=== PATIENT | male | born 1975 | race Caucasian/White ===

== ENCOUNTER 2018-06-18 11:39 | Emergency (ER) | payer OTHER ==
[2018-06-18 11:39] VITALS: BMI 33.5
[2018-06-18 11:54] VITALS: RESP 18
--- NOTE | 2018-06-18 12:30 | C.PDOC ---
History Of Present Illness 42 y/o male presents to ED with c/o chest pressure pain worse with movement radiating to left arm since this morning. Patient denies sob, nausea, vomiting, numbness to arm, fever, chills or any other complaints at this time. Time Seen by Provider: 06/18/18 11:46 Chief Complaint (Nursing): Chest Pain History Per: Patient History/Exam Limitations: no limitations Onset/Duration Of Symptoms: Days Current Symptoms Are (Timing): Still Present Past Medical History Reviewed: Historical Data, Nursing Documentation, Vital Signs Vital Signs: Last Vital Signs Temp 98.8 F 06/18/18 17:42 Pulse 87 06/18/18 17:42 Resp 18 06/18/18 17:42 BP 130/89 06/18/18 17:42 Pulse Ox 96 06/18/18 17:42 - Medical History PMH: No Chronic Diseases Surgical History: Appendectomy - [facility] Procedures TETANUS TOXOID ADMINIST (08/29/14) Family History: States: No Known Family Hx - Social History Hx Tobacco Use: Yes Hx Alcohol Use: No Hx Substance Use: No - Immunization History Hx Tetanus Toxoid Vaccination: No Hx Influenza Vaccination: No Hx Pneumococcal Vaccination: No Review Of Systems Except As Marked, All Systems Reviewed And Found Negative. Cardiovascular: Positive for: Chest Pain Musculoskeletal: Positive for: Arm Pain Physical Exam - Physical Exam Appears: Non-toxic, No Acute Distress Skin: Warm, Dry, No Rash Head: Atraumatic, Normacephalic Eye(s): bilateral: Normal Inspection Oral Mucosa: Moist Neck: Normal ROM, Supple Chest: Symmetrical, Tenderness (left side chest wall tenderness ) Cardiovascular: Rhythm Regular Respiratory: Normal Breath Sounds, No Rales, No Rhonchi, No Wheezing Gastrointestinal/Abdominal: Soft, No Tenderness, No Guarding, No Rebound Extremity: Normal ROM, No Pedal Edema, Capillary Refill (<2 seconds) Neurological/Psych: Oriented x3, Normal Speech, Normal Cognition ED Course And Treatment - Laboratory Results Result Diagrams: 06/18/18 12:31 06/18/18 12:31 ECG: Interpreted By Me, Viewed By Me ECG Rhythm: Sinus Rhythm ECG Interpretation: Normal Interpretation Of ECG: Normal axis, normal intervals, no ST/T wave changes Rate From EC O2 Sat by Pulse Oximetry: 98 Medical Decision Making Medical Decision Making: Assessment: Chest pain Plan: EKG, CXR, blood work atypical chest pain heart score - 0 troponin x 2 negative will discharge home to follow up with pmd in 2 days Disposition Counseled Patient/Family Regarding: Studies Performed, Diagnosis - Disposition Referrals: [facility] [Outside] Disposition: HOME/ ROUTINE Disposition Time: 17:30 Condition: STABLE Additional Instructions: follow up with your doctor or medical clinic within 2 days call to make an appointment take medication as needed for pain return to ER if symptoms worsens or progress Prescriptions: Naproxen [Naprosyn] 500 mg PO BID PRN #16 tab PRN Reason: Pain, Moderate (4-7) Instructions: Costochondritis (DC) Forms: Gen Discharge Inst Kuwaiti, General Discharge Instructions, [facility] (Azeri), [email or web address] (Ku[place]i), Work Excuse Print Language: AFGHAN - Clinical Impression Clinical Impression: Chest wall pain - Scribe Statement The provider has reviewed the documentation as recorded by the Heath Mae All medical record entries made by the [employer] were at my direction and personally dictated by me. I have reviewed the chart and agree that the record accurately reflects my personal performance of the history, physical exam, medical decision making, and the department course for this patient. I have also personally directed, reviewed, and agree with the discharge instructions and disposition.
[2018-06-18 12:38] LABS: BASO # 0.1 K/uL (0.0-0.2); BASO % 1.2 % (0.0-2.0); EOS # 0.5 K/uL (0.0-0.7); EOS % 4.9 % (0.0-4.0); HEMOGLOBIN 14.9 g/dL (12.0-18.0); LYMPH # 2.5 K/uL (1.0-4.3); MEAN CELL VOLUME 85.7 fL (80.0-94.0); MEAN CORPUSCULAR HEMOGLOBIN 30.3 pg (27.0-31.0); MEAN CORPUSCULAR HGB CONC 35.4 g/dL (33.0-37.0); MEAN PLATELET VOLUME 7.6 fL (7.2-11.7); MONO # 0.8 K/uL (0.0-0.8); MONO % 7.6 % (0.0-10.0); NEUT # 6.8 K/uL (1.8-7.0); NEUT % 63.3 % (50.0-75.0); RBC 4.91 Mil/uL (4.40-5.90); RED CELL DISTRIBUTION WIDTH 13.1 % (11.5-14.5); WHITE BLOOD COUNT 10.8 K/uL (4.8-10.8)
[2018-06-18 12:50] LABS: ALB/GLOB RATIO 1.6 (1.0-2.1); ALBUMIN 4.7 g/dL (3.5-5.0); ALT/SGPT 132 U/L (21-72); AST/SGOT 77 U/L (17-59); BLOOD UREA NITROGEN 14 mg/dL (9-20); GFR AFRICAN-AMERICAN > 60; GFR NON-AFRICAN AMERICAN > 60
--- NOTE | 2018-06-18 12:59 | RAD ---
Date of service: 06/18/2018 HISTORY: chest pain COMPARISON: No prior. TECHNIQUE: Chest PA and lateral FINDINGS: LUNGS: No active pulmonary disease. PLEURA: No significant pleural effusion identified. No pneumothorax apparent. CARDIOVASCULAR: Normal. OSSEOUS STRUCTURES: No significant abnormalities. VISUALIZED UPPER ABDOMEN: Normal. OTHER FINDINGS: None. IMPRESSION: No acute cardiopulmonary disease appreciated.
[2018-06-18 13:03] LABS: B-TYPE NATRIURETIC PEPTIDE 26.9 pg/mL (0-450)
[2018-06-18 17:54] VITALS: BP 130/89; PULSE 87; TEMP 98.8
[2018-06-18 18:31] VITALS: O2SAT 98
--- NOTE | 2018-06-19 16:22 | CARD ---
APPROVED REPORT Date of service: 06/18/2018 EKG Measurement Heart [id number] MD 140P34 [id number] <Conclusion> Normal sinus rhythm Normal ECG
== END 2018-06-18 17:45 | disposition home or self-care (01) ==
LOC: C.ER 11:39
DX: R07.89 Other chest pain (principal)
CPT/HCPCS: 71046; 80053; 83880; 84484; 85025; 85378; 93005; 96374; 99285; J1885

== ENCOUNTER 2019-03-11 04:09 | Emergency (ER) | payer SELFPAY ==
[2019-03-11 04:09] VITALS: BMI 33.5
[2019-03-11 04:22] VITALS: O2SAT 98
[2019-03-11] MEDS ORDERED: Aspirin 325 mg EC Tablets PO STA (04:22)
--- NOTE | 2019-03-11 04:22 | C.PDOC ---
History Of Present Illness Patient presents to the ED c/o reproducible left sided chest wall pain that started yesterday. Patient denies fever, chills, headache, SOB, palpitations, rash, nauseam vomit, diarrhea, weakness, numbness. Time Seen by Provider: 03/11/19 04:20 Chief Complaint (Nursing): Chest Pain History Per: Patient History/Exam Limitations: no limitations Onset/Duration Of Symptoms: Days (1) Current Symptoms Are (Timing): Still Present Quality: "Pain" Exacerbating Factors: Movement Recent travel outside of the [place]: No Additional History Per: Patient Past Medical History Reviewed: Historical Data, Nursing Documentation, Vital Signs Vital Signs: Last Vital Signs Temp 98.5 F 03/11/19 04:15 Pulse 88 03/11/19 04:15 Resp 16 03/11/19 04:15 BP 130/85 03/11/19 04:15 Pulse Ox 130 H 03/11/19 04:15 - Medical History PMH: No Chronic Diseases Denies: Chronic Kidney Disease Surgical History: Appendectomy - [facility] Procedures TETANUS TOXOID ADMINIST (08/29/14) Family History: States: Unknown Family Hx - Social History Hx Tobacco Use: Yes Hx Alcohol Use: Yes Hx Substance Use: No - Immunization History Hx Tetanus Toxoid Vaccination: No Hx Influenza Vaccination: No Hx Pneumococcal Vaccination: No Review Of Systems Constitutional: Negative for: Fever, Chills Eyes: Negative for: Vision Change Cardiovascular: Positive for: Chest Pain. Negative for: Palpitations Respiratory: Negative for: Shortness of Breath Gastrointestinal: Negative for: Nausea, Vomiting, Abdominal Pain Skin: Negative for: Rash Neurological: Negative for: Weakness, Numbness, Headache, Dizziness Physical Exam - Physical Exam Appears: Non-toxic, No Acute Distress Skin: Warm, Dry Head: Normacephalic Eye(s): bilateral: Normal Inspection, PERRL, EOMI Neck: Supple Chest: Symmetrical, Tenderness (left sided reproducible) Cardiovascular: Rhythm Regular Respiratory: No Rales, No Rhonchi, No Wheezing Gastrointestinal/Abdominal: Soft, No Tenderness Extremity: Bilateral: Atraumatic, Normal Color And Temperature, Normal ROM Neurological/Psych: Oriented x3, Normal Speech, Normal Cognition Gait: Steady ED Course And Treatment - Laboratory Results Result Diagrams: 03/11/19 05:33 03/11/19 05:33 ECG: Interpreted By Me, Viewed By Me ECG Rhythm: Sinus Rhythm (86) O2 Sat by Pulse Oximetry: 98 (ON RA) Pulse Ox Interpretation: Normal - Radiology CXR: Interpreted by Me, Viewed By Me CXR Interpretation: Yes: Other (unchanged from 06/18/18). No: Infiltrates, Fracture, Cardiomegaly Progress Note: Plan: - EKG. - Labs. - CXR. - Aspirin 325 mg PO. - Toradol 30 mg IVP Reevaluation Time: 06:09 Reassessment Condition: Improved Medical Decision Making Medical Decision Making: I considered the following diagnoses: acute coronary syndrome, pulmonary embolism, lower respiratory infection, aortic dissection/aneurysm, pneumothorax, pericarditis, esophagitis/GERD, zoster and esophageal rupture but found them to be unlikely based on the history, physical exam, and diagnostics. My conclusions regarding the unlikely diagnoses were based on: the absence of significant EKG abnormalities, the lack of suggestive x-ray findings, the absence of significant abnormalities on cardiac monitoring, the absence of asymmetric pulses,. pt is cp free and wants to go home Upon provider reevaluation patient is feeling better, is medically stable, and requires no further treatment in the ED at this time. Patient will be discharged home with Rx for naproxen. Counseling was provided and all questions were answered regarding diagnosis and need for follow up with the referred clinic. There is agreement to discharge plan. Return if symptoms persist or worsen. Disposition Counseled Patient/Family Regarding: Studies Performed, Diagnosis, Need For Followup, Rx Given - Disposition Referrals: [facility] [Outside] [facility] [Outside] Disposition: HOME/ ROUTINE Disposition Time: 06:09 Condition: FAIR Additional Instructions: Por favor regrese si los sntomas recurren. Tambin necesitas que te revisen el azcar. Prescriptions: Naproxen [Naprosyn] 1 tab PO BID PRN #25 tab PRN Reason: Pain Instructions: Costochondritis (DC) Forms: [facility] (Estonian), Work Excuse Print Language: CYMRO - Clinical Impression Clinical Impression: Costochondral chest pain - Scribe Statement The provider has reviewed the documentation as recorded by the Scribe Rob Horne All medical record entries made by the Scribe were at my direction and personally dictated by me. I have reviewed the chart and agree that the record accurately reflects my personal performance of the history, physical exam, medical decision making, and the department course for this patient. I have also personally directed, reviewed, and agree with the discharge instructions and disposition.
[2019-03-11 05:37] LABS: BASO # 0.1 K/uL (0.0-0.2); BASO % 0.5 % (0.0-2.0); EOS # 0.4 K/uL (0.0-0.7); EOS % 3.8 % (0.0-4.0); LYMPH # 2.7 K/uL (1.0-4.3); LYMPH % 27.3 % (20.0-40.0); MEAN CELL VOLUME 87.7 fL (80.0-94.0); MEAN CORPUSCULAR HGB CONC 34.2 g/dL (33.0-37.0); MEAN PLATELET VOLUME 8.7 fL (7.2-11.7); MONO % 10.5 % (0.0-10.0); NEUT # 5.7 K/uL (1.8-7.0); NEUT % 57.9 % (50.0-75.0); RED CELL DISTRIBUTION WIDTH 12.9 % (11.5-14.5); WHITE BLOOD COUNT 9.9 K/uL (4.8-10.8)
[2019-03-11 05:49] LABS: ALB/GLOB RATIO 1.6 (1.0-2.1); ALBUMIN 4.3 g/dL (3.5-5.0); ALT/SGPT 157 U/L (21-72); AST/SGOT 43 U/L (17-59); BLOOD UREA NITROGEN 15 mg/dL (9-20); CALCIUM 8.9 mg/dl (8.6-10.4); GFR NON-AFRICAN AMERICAN > 60; LIPASE 74 U/L (23-300)
[2019-03-11 05:56] LABS: BARBITURATES, UR NEGATIVE (NEGATIVE); BENZODIAZEPINES, UR NEGATIVE (NEGATIVE); OPIATES, UR NEGATIVE (NEGATIVE); PHENCYCLIDINE, UR NEGATIVE (NEGATIVE)
[2019-03-11 06:41] LABS: INR 1.2; PROTHROMBIN TIME 12.8 SECONDS (9.7-12.2)
[2019-03-11 06:49] VITALS: BP 142/76; PULSE 83; RESP 18; TEMP 99.2
--- NOTE | 2019-03-11 08:53 | RAD ---
Date of service: 03/11/2019 HISTORY: chest pain COMPARISON: None available. TECHNIQUE: 1 view obtained. FINDINGS: LUNGS: No consolidation bilaterally. Diminished inspiratory volume. Apical lordotic technique as well. PLEURA: No significant pleural effusion identified, no pneumothorax apparent. CARDIOVASCULAR: No aortic atherosclerotic calcification present. Cardiac silhouette appears prominent likely technically magnified. No pulmonary vascular congestion. OSSEOUS STRUCTURES: No significant abnormalities. VISUALIZED UPPER ABDOMEN: Normal. OTHER FINDINGS: None. IMPRESSION: Diminished inspiratory volume. No consolidation bilaterally. No pulmonary vascular congestion.
--- NOTE | 2019-03-12 12:45 | CARD ---
APPROVED REPORT Date of service: 03/11/2019 EKG Measurement Heart [id number] CT 148P30 [id number] <Conclusion> Normal sinus rhythm Normal ECG
== END 2019-03-11 06:49 | disposition home or self-care (01) ==
LOC: C.ER 04:09
DX: R07.89 Other chest pain (principal)
CPT/HCPCS: 71045; 80053; 83690; 84484; 85025; 85610; 85730; 93005; 96374; 99284; G0480; J1885